=== PATIENT | female | born 1975 | race Caucasian/White ===

== ENCOUNTER 2018-05-17 14:10 | Emergency (ER) | payer BC, OTHER ==
[2018-05-17 14:23] VITALS: BP 149/93
--- NOTE | 2018-05-17 16:20 | EDM.PDOC ---
ED HPI GENERAL MEDICAL PROBLEM - General Chief Complaint: Upper Extremity Injury/Pain Stated Complaint: shoulder injury Time Seen by Provider: 05/17/18 14:40 Source of Information: Reports: Patient History Limitations: Reports: No Limitations - History of Present Illness INITIAL COMMENTS - FREE TEXT/NARRATIVE: Jennifer is a 43 yo female who is brought to the ER via [facility] after falling at home. She states she tripped of a rug and ended up landing onto her left shoulder. She states she heard a crack. She denies any neck or head trauma involvement. States she did not lose consciousness and was able to get up to call the ambulance. En route EMS did give 100 mcg of Fentanyl intravenously. EMS did place her in a sling, which she admits did help. Upon arrival her pain was 6 out of 10 after receiving the Fentanyl. 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, Other (see below) (arm sling) Left Shoulder Pain Score (Numeric/FACES): 6 - Related Data Allergies Allergy/AdvReac Type Severity Reaction Status Date / Time No Known Allergies Allergy Verified 05/17/18 14:24 Home Meds: Home Meds ClonazePAM [KlonoPIN] 1.75 mg PO BEDTIME 04/28/15 [History] Pravastatin [Pravachol] 40 mg PO BEDTIME 04/28/15 [History] amLODIPine [Norvasc] 10 mg PO DAILY 04/28/15 [History] traZODone 150 mg PO BEDTIME 04/28/15 [History] Escitalopram [Lexapro] 20 mg PO DAILY 10/10/16 [History] Lisinopril 20 mg PO DAILY 10/10/16 [History] Potassium Chloride 20 meq PO BID 10/10/16 [History] metFORMIN [Glucophage] 500 mg PO BIDMEALS 10/10/16 [History] Aspirin [Adult Aspirin] 81 mg PO DAILY 05/17/18 [History] Calcium Carbonate/Vitamin D3 [Calcium 600 + Vit D Tablet] 1 each PO DAILY [History] Cranberry Fruit [Cranberry] 400 mg PO DAILY 05/17/18 [History] Lisinopril/Hydrochlorothiazide [Lisinopril-Hctz 20-12.5 mg Tab] 1 each PO DAILY 05/17/18 [History] Metoprolol Succinate 50 mg PO DAILY 05/17/18 [History] Minocycline [Minocin] 100 mg PO BID 05/17/18 [History] Multivitamin [Daily Multiple Vitamin] 0.5 tab PO BID 05/17/18 [History] diphenhydrAMINE HCl [Allergy] 25 mg PO BID 05/17/18 [History] raNITIdine HCl [Ranitidine HCl] 75 mg PO BID 05/17/18 [History] Past Medical History HEENT History: Reports: Impaired Vision Other HEENT History: wears glasses Cardiovascular History: Reports: High Cholesterol, Hypertension, [place] Other Cardiovascular History: angiogram fixed the cut in the Respiratory History: Reports: Sleep Apnea Other Respiratory History: uses a machine Gastrointestinal History: Reports: None Genitourinary History: Reports: None 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: 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 Musculoskeletal History: Reports: Arthritis Neurological History: Reports: None Psychiatric History: Reports: Anxiety, Depression Endocrine/Metabolic History: Reports: Diabetes, Type II, Obesity/BMI 30+ Hematologic History: Reports: None Immunologic History: Reports: None Oncologic (Cancer) History: Reports: None Dermatologic History: Reports: None - Infectious Disease History Infectious Disease History: Reports: Chicken Pox - Past Surgical History Head Surgeries/Procedures: Reports: None HEENT Surgical History: Reports: Adenoidectomy, Other (See Below) Other HEENT Surgeries/Procedures: 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 Eyes: Reports: No Symptoms. Denies: Vision Change Ears: Denies: Dizziness Respiratory: Reports: No Symptoms Cardiovascular: Reports: No Symptoms Musculoskeletal: Reports: Shoulder Pain (left), Arm Pain, Muscle Pain. Denies: Neck Pain, Back Pain Neurological: Denies: Dizziness, Headache, Syncope Psychiatric: Reports: No Symptoms ED EXAM, GENERAL - Physical Exam Exam: See Below Exam Limited By: No Limitations General Appearance: Alert, Mild Distress, Moderate Distress Eye Exam: Bilateral Eye: EOMI, PERRL Ears: Normal External Exam, Normal Canal, Hearing Grossly Normal, Normal TMs Nose: Normal Inspection, Normal Mucosa, No Blood Throat/Mouth: Normal Inspection, Normal Lips, Normal Teeth, Normal Gums, Normal Oropharynx, Normal Voice, No Airway Compromise Head: Atraumatic, Normocephalic Neck: Normal Inspection, Supple, Full Range of Motion. No: Tender Lateral, Tender Midline Respiratory/Chest: No Respiratory Distress, Lungs Clear, Normal Breath Sounds Cardiovascular: Regular Rate, Rhythm, No Murmur Extremities: Limited Range of Motion (left shoulder, unable to abduct. Pain immediately with palpation to left posterior shoulder and top aspect. Exam limited d/t pain. ). No: Joint Swelling Neurological: Alert, Oriented, Normal Cognition, No Motor/Sensory Deficits Psychiatric: Normal Affect, Normal Mood Skin Exam: Warm, Dry, Intact Course - Vital Signs Last Recorded V/S: Last Vital Signs Temp 98.0 F 05/17/18 14:18 Pulse 80 05/17/18 14:18 Resp 16 05/17/18 14:18 BP 149/93 H 05/17/18 14:18 Pulse Ox 97 05/17/18 14:18 - Orders/Labs/Meds Orders: Active Orders 24 hr Category Date Time Status Humerus Lt [CR] Stat Exams 05/17/18 14:09 Taken Shoulder Comp Lt [CR] Stat Exams 05/17/18 14:26 Taken Departure - Departure Time of Disposition: 16:24 Disposition: Home, Self-Care 01 Clinical Impression: Acute pain of left shoulder - Discharge Information *PRESCRIPTION DRUG MONITORING PROGRAM REVIEWED*: Yes *COPY OF PRESCRIPTION DRUG MONITORING REPORT IN PATIENT DOMENIC: No Instructions: Shoulder Pain, Joint Pain, [id number] Referrals: PCP,None [Primary Care Provider] - Forms: ED Department Discharge Additional Instructions: Arm sling applied and recommend wearing until follow up with primary provider X-rays were negative today for any acute osseous abnormality. Recommend recheck with primary provider in the next week Ice shoulder 20 minutes at a time, 5 times a day. May use pain medications you have at home as directed on bottle Motrin, ibuprofen, aleve or the like may be used as well as directed on bottle If symptoms worsen or any new onset of symptoms, recommend reevaluation. - Problem List & Annotations (1) Acute pain of left shoulder SNOMED Code(s): 60796352, 088884221 Code(s): M25.512 - PAIN IN LEFT SHOULDER Status: Acute Current Visit: Yes - My Orders Last 24 Hours: My Active Orders 05/17/18 14:09 Humerus Lt [CR] Stat 05/17/18 14:26 Shoulder Comp Lt [CR] Stat - Assessment/Plan Last 24 Hours: My Active Orders 05/17/18 14:09 Humerus Lt [CR] Stat 05/17/18 14:26 Shoulder Comp Lt [CR] Stat Plan: X-rays reviewed and consulted with Dr. Delgadillo, Radiologist, who confirmed no fractures, dislocations or acute injuries noted on images. Discussed findings with Jennifer. We were able to get Jennifer up and ambulatory. Arm was placed in a sling at this time, which gave her relief. Upon palpation of shoulder she would break out in tears; however, when same area was reexamined it didn't appear to be bothering her. We will discharge home at this time with instructions. 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
== END 2018-05-17 16:40 | disposition home or self-care (01) ==
LOC: CC.ED 14:10
DX: M25.512 Pain in left shoulder (principal); F17.210 Nicotine dependence, cigarettes, uncomplicated; E78.00 Pure hypercholesterolemia, unspecified; I10 Essential (primary) hypertension; I25.2 Old myocardial infarction; F41.9 Anxiety disorder, unspecified; F32.9 Major depressive disorder, single episode, unspecified; E11.9 Type 2 diabetes mellitus without complications; Z79.899 Other long term (current) drug therapy
CPT/HCPCS: 73030-LT; 73060-LT; 99284